=== PATIENT | female | born 1955 | race Caucasian/White ===

== ENCOUNTER → 2018-11-17 | Outpatient (CLI) | payer BC ==
--- NOTE | 2018-11-17 10:23 | EXE ---
[facility] [employer] [place] [place] [address] STRESS ECHOCARDIOGRAM Name: ESTELLE GONZALEZ Room #: REG CL [facility]#: [id number] Admission: 11/17/18 Attend Phys: Ronaldo Yancey MD Discharge: Date of : 57 Date of Service: 11/17/18 1022 Report #: [id number] THIS REPORT FOR: //name// APPROVED REPORT Study performed: 11/17/2018 09:01:20 Exam: Stress Echocardiogram Indication: CAD Patient Location: Out-Patient Stress Nurse: Carol Nieves RN Ht: 4 ft 11 in HR: 85 bpm BP: 110/76 mmHg Rhythm: NSR Medical History Medical History: CAD non obstructive Medications: Listed on worksheet Allergies: Sulfa Procedure The patient underwent an Exercise Stress Test using the Tao Protocol. Blood pressure, heart rate, and EKG were monitored. An Echocardiogram was performed by landfill gas technician in four stages in quad fashion. At peak stress, four selected images were obtained and placed side by side with resting images for comparison. Stress Test Details Stress Test: Exercise stress testing was performed using a Tao protocol. HR Resting HR: 85 bpm Max Heart Rate (APMHR): 158 bpm Max HR Achieved: 162 bpm Target HR (85% APMHR): 134 bpm % of APMHR: 102 Recovery HR: 96 bpm HR response to stress: Normal HR response to stress BP Resting BP: 110/76 mmHg Max BP: 178/86 mmHg Recovery BP: 120/80 mmHg [facility] [address] [email or web address] [place] [address] STRESS ECHOCARDIOGRAM Name: ESTELLE GONZALEZ Room #: REG CL [facility]#: [id number] Admission: 11/17/18 Attend Phys: Ronaldo Yancey MD Discharge: Date of : 57 Date of Service: 11/17/18 1022 Report #: [id number] BP response to stress: Normal blood pressure response to stress. ECG Resting ECG: Sinus Rhythm Stress ECG: Sinus Rhythm, nonspecific ST-T abnormalities ST Change: equivocal Clinical Reason for Termination: Completed protocol Stress Symptoms: none Exercise duration: 7 min 29 sec Highest Stage Achieved: Stage 3: 3.4 mph at 14% grade. Exercise capacity: 10.40 METs Pre-Stress Echo The resting Echocardiogram showed normal left ventricular contractility with an estimated Ejection Fraction of about 55-60%. No significant valvular abnormalities noted. Post-Stress Echo The stress Echocardiogram showed normal left ventricular contractility with an estimated Ejection Fraction of about 65-70%. Normal augmentation of wall motion in all segments on post stress images. Clinical No clinical evidence for ischemia. Conclusion Clinical Response: Non-ischemic Exercise Capacity: Average Stress ECG Response: Equivocal Stress Echo Images: Non-ischemic The left ventricle is normal in size and wall thickness in both the rest and stress images. Other Information Study Quality: Adequate <Conclusion> The left ventricle is normal in size and wall thickness in both the rest and [facility] [address] [place] [address] STRESS ECHOCARDIOGRAM Name: ESTELLE GONZALEZ Room #: REG [facility].#: [id number] Admission: 11/17/18 Attend Phys: Ronaldo Yancey MD Discharge: Date of : 57 Date of Service: 11/17/18 [facility] Report #: [id number] stress images. <ELECTRONICALLY SIGNED> By: Ronaldo Yancey MD 11/17/181021 21 102 Ronaldo Yancey MD /INF
== END ==
LOC: CV 08:43
DX: I25.10 Atherosclerotic heart disease of native coronary artery without angina pectoris (principal)

== ENCOUNTER → 2021-01-27 | Outpatient (CLI) | payer BC | LOC: SJCVCIMAG 12-16 08:57 | PROVIDERS: ATTEND Internal Medicine Cardiovascular Disease | DX: I08.3 Combined rheumatic disorders of mitral, aortic and tricuspid valves (principal); I25.10 Atherosclerotic heart disease of native coronary artery without angina pectoris; I10 Essential (primary) hypertension ==